=== PATIENT | female | born 1975 | race Caucasian/White ===

== ENCOUNTER 2022-09-11 12:59 | Outpatient (OUT) | payer OTHER, SELFPAY ==
--- NOTE | 2022-09-11 | CONS_ITS ---
CONSULTATION DATE: ??09/11/2022 TO:? BERNARD Gutierrez CHIEF COMPLAINT:? Right lower back pain. HISTORY OF PRESENT ILLNESS:? Review of systems, past medical/surgical history were obtained and documented on the health questionnaire and is available upon request. Patient is 47 years old, reports having pain starting one year ago.? It occurred spontaneously, increased gradually to its present state.? She is describing 5- 7/10 pain, shooting in character with a sharp component, which increases with activities such as standing and walking and performing transitioning maneuvers.? Patient feels most comfortable in the semi-recumbent position and applying heat.? Denies any change in bowel and bladder habits or new sensorimotor changes in the lower extremities.? She has been on ibuprofen for the last four years with varying degrees of relief.? She has also undergone activity modification.? Despite this, her pain has been progressive to the point it alters her quality of life, level of functioning and sleep pattern.? EXAM:? Notable for patient having no clinical radiculopathy or myelopathy involving the lower extremities.? Patient had severe pain with lumbar facet loading maneuvers on the right side at L4-5, L5-S1 with associated myofascial spasm of the lumbar paravertebrals also on the right side.? IMPRESSION:? Our impression is patient has chronic pain secondary to lumbosacral spondylosis with facet joint loading pain clinically on the right side at L4-5, L5-S1 and myofascial spasm.? RECOMMENDATIONS:? I have asked the patient to start baclofen 10 mg pills, half to one t.i.d. as tolerated; physical therapy, and to proceed with diagnostic right sided L4-5, L5-S1 facet injection under fluoroscopic guidance. As part of providing excellent, safe, comprehensive care, the following was completed at our patient's visit: 1. A medication reconciliation and review to ensure accurate knowledge of current/active medications, including asking our patients to inform us about any [id number] medications or herbal remedies/nutritional supplements/alternative remedies. 2. A review to specifically ensure our patients have had annual screening for: elevated body mass index (BMI, see intake chart for exact total), tobacco use, screening for depression, and screening for unhealthy alcohol use.? When screening is concerning, patients are provided with education and the specific recommendation to discuss the concerning health issue and treatment options with their primary care provider. DEVONTED
== END 2022-09-11 13:00 | disposition home or self-care (01) ==
LOC: PM 13:00
PROVIDERS: Visit Provider Anesthesiology Pain Medicine
DX: M47.817 Spondylosis without myelopathy or radiculopathy, lumbosacral region (principal); G89.29 Other chronic pain; M62.838 Other muscle spasm; M54.50 Low back pain, unspecified
CPT/HCPCS: G0463